=== PATIENT | female | born 2000 | race Caucasian/White ===

== ENCOUNTER 2020-02-04 05:34 | Emergency (ER) | payer OTHER ==
[~2020-02-04] VITALS: Ht 170.2 cm; Wt 100.0 kg
--- NOTE | 2020-02-04 05:57 | NUR ---
Pt states she has been seen at [facility] multiple times in the past week for same complaint. Pt reports being in the ER yesterday at [facility], diagnosed with a cyst on her ovary.
[2020-02-04] MEDS ORDERED: SODIUM CHLORIDE FLUSH 10ML SYR IVF ONE (06:00)
[2020-02-04] MEDS ORDERED: ONDANSETRON 2MG/ML, 2ML IVPush ONE (06:00)
[2020-02-04] MEDS ORDERED: MORPHINE SULFATE 4 MG/ML, 1ML IVPush PRN (06:00)
[2020-02-04] MEDS ORDERED: MORPHINE SULFATE 4 MG/ML, 1ML ONE (06:04)
[2020-02-04] MEDS ORDERED: ONDANSETRON 2MG/ML, 2ML ONE (06:04)
[2020-02-04 06:25] LABS: BASOPHILS # (AUTO) 0.04 x10^3/uL (0-0.3); BASOPHILS % (AUTO) 1 % (0-1); EOSINOPHILS # (AUTO) 0.01 x10^3/uL (0-0.8); EOSINOPHILS % (AUTO) 0 % (1-7); LYMPHOCYTES # (AUTO) 1.87 x10^3/uL (1-6.1); LYMPHOCYTES % (AUTO) 22 % (22-44); MD NO; MEAN CORPUSCULAR HEMOGLOBIN 27.8 pg (27.0-34.8); MEAN CORPUSCULAR HGB CONC 32.8 g/dL (32.4-35.8); MEAN CORPUSCULAR VOLUME 84.8 fL (80-100); MONOCYTES % (AUTO) 5 % (2-9); NEUTROPHILS # (AUTO) 6.06 x10^3/uL (1.8-8.0); NEUTROPHILS % (AUTO) 72 % (42-75); PLATELET COUNT 351 x10^3/uL (130-400); RED BLOOD COUNT 4.43 x10^6/uL (3.82-5.3); RED CELL DISTRIBUTION WIDTH 16.7 % (9.6-15.2)
[2020-02-04 06:31] LABS: ALANINE AMINOTRANSFERASE 25 U/L (12-78); ALBUMIN 3.7 g/dL (3.4-5.0); ANION GAP 11 mmol/L (5-15); CALCIUM 8.6 mg/dL (8.5-10.1); CHLORIDE 104 mmol/L (98-107)
[2020-02-04 06:36] LABS: ALKALINE PHOSPHATASE 54 U/L (45-117); BILIRUBIN,TOTAL 0.5 mg/dL (0.2-1.0); TOTAL PROTEIN 6.9 g/dL (6.4-8.2)
[2020-02-04 06:42] LABS: CULTURE INDICATED? YES; MICROSCOPIC INDICATED
[2020-02-04 06:57] VITALS: BP 120/82
--- NOTE | 2020-02-04 06:59 | NUR ---
PT RECLINED IN BED, RESTING WITH EYES CLOSED. AWAKENS EASILY, AOX4. PT REPORTS PAIN NOW AT TOLERABLE LEVEL. BLANKET IN PLACE, HOB TO LEVEL OF COMFORT. SIDE RAILS UP, CALL LIGHT IN REACH. PT CHART UP FOR RECHECK.
--- NOTE | 2020-02-04 07:26 | NUR ---
PT GIVEN DC INFORMATION, INSTRUCTED TO DRESS AND CALL FOR RIDE.
== END 2020-02-04 07:36 | disposition home or self-care (01) ==
LOC: ED 06:13
DX: R10.84 Generalized abdominal pain (principal); R11.2 Nausea with vomiting, unspecified; R30.0 Dysuria
CPT/HCPCS: 36415; 80053; 81001; 83690; 84703; 85025; 87086; 96374; 96375; 99284; J2270; J2405

== ENCOUNTER 2020-02-04 16:39 | Emergency (ER) | payer OTHER ==
[~2020-02-04] VITALS: Ht 170.2 cm; Wt 97.8 kg
--- NOTE | 2020-02-04 17:00 | NUR ---
LAW IN ROOM. PT STS 6 CM CYST R OVARY. AT [facility] 4 DAYS AGO: CT/US. WAS NOT DRAINED. C/O PAIN AND NAUSEA. C/O HEAVY VAG BLEED X3 DAYS. "COMES AND GOES". PLAN FOR US AND MEDS.
[2020-02-04] MEDS ORDERED: DIPHENHYDRAMINE 50 MG/ML, 1ML ONE (17:03)
[2020-02-04] MEDS ORDERED: ONDANSETRON 2MG/ML, 2ML ONE (17:03)
[2020-02-04] MEDS ORDERED: MORPHINE SULFATE 4 MG/ML, 1ML ONE (17:04)
[2020-02-04 17:21] VITALS: BP 130/83
[2020-02-04] MEDS ORDERED: DIPHENHYDRAMINE 50 MG/ML, 1ML IVPush ONE (17:30)
[2020-02-04] MEDS ORDERED: ONDANSETRON 2MG/ML, 2ML IVPush ONE (17:30)
[2020-02-04] MEDS ORDERED: MORPHINE SULFATE 4 MG/ML, 1ML IVPush PRN (17:30)
== END 2020-02-04 19:03 | disposition home or self-care (01) ==
LOC: ED 17:39
DX: N83.202 Unspecified ovarian cyst, left side (principal); R58 Hemorrhage, not elsewhere classified
CPT/HCPCS: 76830; 96374; 96375; 99284; J1200; J2270; J2405

== ENCOUNTER 2020-02-16 09:51 | Observation (INO) | payer MEDICAID, OTHER ==
[~2020-02-16] VITALS: Ht 170.2 cm; Wt 98.0 kg
[2020-02-16] MEDS ORDERED: SODIUM CHLORIDE FLUSH 10ML SYR IVF ONE (10:30)
[2020-02-16] MEDS ORDERED: ONDANSETRON 2MG/ML, 2ML IVPush ONE (10:30)
--- NOTE | 2020-02-16 10:40 | NUR ---
ULTRASOUND DELAY-PT REQUESTING MEDS FIRST.
[2020-02-16] MEDS ORDERED: MORPHINE SULFATE 4 MG/ML, 1ML ONE ×2 (10:47→11:38)
[2020-02-16] MEDS ORDERED: FAMOTIDINE 20 MG/2 ML ONE (10:47)
[2020-02-16] MEDS ORDERED: ONDANSETRON 2MG/ML, 2ML ONE (10:47)
[2020-02-16] MEDS: MORPHINE SULFATE 4 MG/ML, 1ML IVPush PRN ×2 (10:54→11:41)
--- NOTE | 2020-02-16 10:55 | NUR ---
PT STATES SHE VOMITED BLOOD; ABOUT 300ML LIGHT BROWN/CLEAR LIQUID NOTED IN EMESIS BAG. ER PA NOTIFIED. NO HX OF GI BLEEDING PER PT BUT DOES REPORT HX OF N/V ABOUT 2 WEEKS AGO. PT C/O NAUSEA AND LIGHTHEADEDNESS. ALL MONITORS IN PLACE. IV BOLUS STARTED & PT MEDICATED PER ORDERS.
[2020-02-16] MEDS ORDERED: FAMOTIDINE 20 MG/2 ML IV ONE (11:00)
[2020-02-16] MEDS ORDERED: SODIUM CHLORIDE 0.9% 1,000ML IVBOLUS ONE ×2 (11:00→12:30)
[2020-02-16 11:01] LABS: BASOPHILS # (AUTO) 0.02 x10^3/uL (0-0.3); BASOPHILS % (AUTO) 0 % (0-1); EOSINOPHILS % (AUTO) 0 % (1-7); LYMPHOCYTES # (AUTO) 1.21 x10^3/uL (1-6.1); LYMPHOCYTES % (AUTO) 7 % (22-44); MD NO; MEAN CORPUSCULAR HEMOGLOBIN 27.8 pg (27.0-34.8); MEAN CORPUSCULAR HGB CONC 32.3 g/dL (32.4-35.8); MEAN CORPUSCULAR VOLUME 85.9 fL (80-100); MEAN PLATELET VOLUME 7.9 fL (7.4-10.4); MONOCYTES # (AUTO) 0.19 x10^3/uL (0-1.4); MONOCYTES % (AUTO) 1 % (2-9); NEUTROPHILS # (AUTO) 16.01 x10^3/uL (1.8-8.0); NEUTROPHILS % (AUTO) 92 % (42-75); PLATELET COUNT 457 x10^3/uL (130-400); RED CELL DISTRIBUTION WIDTH 17.6 % (9.6-15.2)
--- NOTE | 2020-02-16 11:09 | NUR ---
PT TO US VIA [facility].
[2020-02-16 11:11] LABS: ALBUMIN 4.3 g/dL (3.4-5.0); ANION GAP 16 mmol/L (5-15); CALCIUM 9.4 mg/dL (8.5-10.1); CHLORIDE 111 mmol/L (98-107)
[2020-02-16 11:15] LABS: CREATININE 0.97 mg/dL (0.55-1.02)
[2020-02-16 11:16] LABS: ALANINE AMINOTRANSFERASE 34 U/L (12-78); ALKALINE PHOSPHATASE 76 U/L (45-117); BILIRUBIN,TOTAL 0.4 mg/dL (0.2-1.0)
[2020-02-16] MEDS ORDERED: PROMETHAZINE 25 MG/ML, 1ML ONE (11:38)
--- NOTE | 2020-02-16 11:46 | NUR ---
PT STILL C/O NAUSEA & ABD PAIN. STATES, "ZOFRAN DOESN'T WORK FOR ME". ER PA NOTIFIED. PT MEDICATED WITH PHENERGAN & ANOTHER DOSE MORPHINE. PT AMBULATED TO WITHOUT DIFFICULTY, INSTRUCTED ON CLEAN CATCH URINE SAMPLE.
[2020-02-16] MEDS ORDERED: PROMETHAZINE 25 MG/ML, 1ML IM ONE (12:00)
--- NOTE | 2020-02-16 12:05 | NUR ---
Break RN: Pt placed on 2 liters via nasal cannula after SPO2 in 80's while sleeping post narcotic administration. SPO2 now 97%. Pt aware of need for UA & will press call light when able to urinate.
--- NOTE | 2020-02-16 12:30 | NUR ---
Break RN: Pt to CT via [facility].
[2020-02-16] MEDS ORDERED: OMNIPAQUE 350 MG/ML, 100ML BOTTLE ONE (12:42)
[2020-02-16] MEDS ORDERED: KETOROLAC 30 MG/1 ML IVPush ONE (13:00)
[2020-02-16] MEDS ORDERED: KETOROLAC 30 MG/1 ML ONE (13:06)
[2020-02-16 13:19] LABS: MICROSCOPIC AUTO
[2020-02-16] MEDS ORDERED: NS + 20MEQ KCL 1,000 ML IV SCH (14:19)
[2020-02-16] MEDS ORDERED: hydrALAzine 20 MG/ML, 1ML IVPush PRN (14:30)
[2020-02-16] MEDS ORDERED: ONDANSETRON 2MG/ML, 2ML IVPush PRN (14:30)
[2020-02-16] MEDS ORDERED: ENOXAPARIN 40 MG/0.4 ML SQ SCH (14:30)
[2020-02-16] MEDS ORDERED: BISACODYL 10 MG SUPP PR PRN (14:30)
[2020-02-16] MEDS ORDERED: morphine SULFATE 10 MG/ML, 1ML IVPush PRN (14:30)
[2020-02-16] MEDS ORDERED: LIDODERM 5% PATCH TD PRN (14:30)
[2020-02-16 15:18] LABS: FREE T4 (FREE THYROXINE) 1.25 ng/dL (0.76-1.46)
[2020-02-16 19:17] VITALS: BP 115/70
[2020-02-16 21:12] LABS: AMPHETAMINE SCREEN, URINE Negative (Negative); BARBITURATE SCREEN, URINE Negative (Negative); BENZODIAZEPINE SCREEN, URINE Negative (Negative); CANNABINOID SCREEN, URINE Positive (Negative); COCAINE SCREEN, URINE Negative (Negative); METHADONE SCREEN, URINE Negative (Negative); OPIATE SCREEN, URINE Positive (Negative)
[2020-02-17] MEDS ORDERED: PANTOPRAZOLE 40 MG IV IVPush SCH (07:30)
== END 2020-02-16 22:00 | disposition left against medical advice (07) ==
LOC: ED 10:19 → EDIP 13:49 → INTOOBSV 13:49 → 3N 15:04
PROVIDERS: ADMIT Hospitalist; ATTEND Hospitalist
DX: E86.0 Dehydration (principal); E87.6 Hypokalemia; R11.2 Nausea with vomiting, unspecified; E28.2 Polycystic ovarian syndrome; R10.84 Generalized abdominal pain; D72.829 Elevated white blood cell count, unspecified; Z79.899 Other long term (current) drug therapy
CPT/HCPCS: 36415; 74177; 76830; 80053; 80307; 81001; 83690; 84439; 84443; 84703; 85025; 96361; 96365; 96366; 96372; 96375; 96376; 99284; G0378; J1885; J2270; J2405; J2550; J3480; J3490; J7030; Q9967

== ENCOUNTER 2021-07-09 10:02 | Emergency (ER) | payer OTHER, MEDICAID ==
[~2021-07-09] VITALS: Ht 170.2 cm; Wt 84.7 kg
--- NOTE | 2021-07-09 10:17 | NUR ---
EKG DONE IN TRIAGE.
--- NOTE | 2021-07-09 10:56 | NUR ---
pt unable to produce ua at this time
[2021-07-09] MEDS ORDERED: MORPHINE SULFATE 4 MG/ML, 1ML ONE ×2 (10:57→12:22)
[2021-07-09] MEDS ORDERED: ONDANSETRON 2MG/ML, 2ML ONE (10:57)
[2021-07-09] MEDS ORDERED: FAMOTIDINE 20 MG/2 ML ONE (10:57)
[2021-07-09] MEDS ORDERED: ONDANSETRON 2MG/ML, 2ML IVPush ONE (11:00)
[2021-07-09] MEDS ORDERED: SODIUM CHLORIDE 0.9% 1,000ML IVBOLUS ONE (11:00)
[2021-07-09] MEDS ORDERED: FAMOTIDINE 20 MG/2 ML IVPush ONE (11:00)
[2021-07-09] MEDS ORDERED: SODIUM CHLORIDE FLUSH 10ML SYR IVF ONE (11:00)
[2021-07-09] MEDS: MORPHINE SULFATE 4 MG/ML, 1ML IVPush PRN ×2 (11:02→12:26)
[2021-07-09 11:14] LABS: ALANINE AMINOTRANSFERASE 25 U/L (12-78); ALBUMIN 3.6 g/dL (3.4-5.0); ANION GAP 7 mmol/L (5-15); CALCIUM 9.2 mg/dL (8.5-10.1); CHLORIDE 98 mmol/L (98-107); CREATININE 0.89 mg/dL (0.55-1.02)
[2021-07-09 11:22] LABS: ALKALINE PHOSPHATASE 53 U/L (45-117); BILIRUBIN,TOTAL 0.7 mg/dL (0.2-1.0); TOTAL PROTEIN 7.9 g/dL (6.4-8.2)
[2021-07-09 11:24] LABS: BASOPHILS % (AUTO) 0 % (0-1); EOSINOPHILS % (AUTO) 0 % (1-7); LYMPHOCYTES % (AUTO) 21 % (22-44); MEAN CORPUSCULAR HEMOGLOBIN 31.2 pg (27.0-34.8); MEAN CORPUSCULAR HGB CONC 34.9 g/dL (32.4-35.8); MEAN PLATELET VOLUME 7.5 fL (7.4-10.4); MONOCYTES % (AUTO) 7 % (2-9); NEUTROPHILS % (AUTO) 72 % (42-75); PLATELET COUNT 382 x10^3/uL (130-400); RED CELL DISTRIBUTION WIDTH 13.9 % (9.6-15.2)
--- NOTE | 2021-07-09 11:31 | NUR ---
TO CT VIA [facility]
[2021-07-09] MEDS ORDERED: OMNIPAQUE 350 MG/ML, 100ML BOTTLE ONE (11:51)
--- NOTE | 2021-07-09 11:57 | NUR ---
Break RN- urine sample collected
[2021-07-09] MEDS ORDERED: MAGNESIUM SULFATE/D5W 100 ML ONE (12:21)
[2021-07-09] MEDS ORDERED: MAGNESIUM SULFATE/D5W 100 ML IVPB ONE (12:30)
[2021-07-09] MEDS ORDERED: POTASSIUM CHLORIDE 10% 40 MEQ/30 ML UDC PO ONE (12:30)
[2021-07-09] MEDS ORDERED: MAGNESIUM SULFATE 1 GM in SODIUM CHLORIDE 0.9% 50 ML IV ONE (12:30)
[2021-07-09 12:32] LABS: MICROSCOPIC AUTO
[2021-07-09 14:31] VITALS: BP 107/66
== END 2021-07-09 14:33 | disposition home or self-care (01) ==
LOC: ED 10:30
DX: R10.84 Generalized abdominal pain (principal); R11.2 Nausea with vomiting, unspecified; R07.89 Other chest pain
CPT/HCPCS: 36415; 74177; 80053; 81001; 83690; 84703; 85025; 87086; 93005; 96361; 96365; 96375; 96376; 99285; J2270; J2405; J7030; Q9967